=== PATIENT | male | born 2000 | race Caucasian/White ===

== ENCOUNTER 2019-07-05 21:03 | Emergency (ER) | payer OTHER, SELFPAY ==
[2019-07-05 21:06] VITALS: BP 128/72; PULSE 130; RESP 17; TEMP 36.9; O2SAT 96; BMI 29.9
[2019-07-05 21:11] VITALS: TEMP 38.6
[2019-07-05] MEDS: acetaminophen 500 mg Tablet 1000 MG PO (21:40)
[2019-07-05] MEDS: ibuprofen 600 mg Tablet PO (21:40)
--- NOTE | 2019-07-05 22:00 | W.ED.GENADLT ---
HPI - General Adult General: Chief complaint: General Medical Stated complaint: cold,light headed, mora Time Seen by Provider: 07/05/19 21:21 Source: patient Mode of arrival: ambulatory Limitations: no limitations History of Present Illness: HPI narrative: Patient is a 19-year-old male who presents to ED today with complaints of a headache, sinus pain/pressure, sore throat, productive cough, body aches, and fevers that began yesterday Onset (ago): hour(s) Relieving factors: none Exacerbating factors: none Associated symptoms: Reports headache(s); Deny chest pain, dyspnea, nausea, rash, palpitations or vomiting Review of Systems Const: Reports: fever, chills and body aches; Denies: fatigue or night sweats Eyes: Denies: change in vision, blurry vision, photophobia, eye discomfort or eye discharge ENMT: Reports: painful swallowing, nasal discharge and nasal congestion; Denies: throat pain, enlarged tonsils, swelling of lips/tongue, oral sores/lesions, ear pain, ear discharge, post nasal drip or facial/sinus pain Card: Denies: chest pain, palpitations or lightheadedness Resp: Reports: productive cough and chest congestion; Denies: shortness of breath, pain on inspiration or coughing up blood GI: Denies: abdominal pain, nausea, vomiting or diarrhea Musc: Denies: neck pain or back pain Skin/Breast: Denies: rash Neuro: Reports: headache All/Imm: Denies: facial swelling or seasonal allergies Physical Exam Const: COMMON NORMALS: no apparent distress, average body habitus, oriented x3, alert and well nourished GENERAL APPEARANCE: cooperative HENMT: COMMON NORMALS: normocephalic, head/scalp atraumatic, hearing grossly normal bilaterally, external ears normal, EAC's normal, TM's normal bilaterally, external nose normal, nasal mucous membranes and turbinates normal, moist oral mucous membranes and oropharynx normal HEAD & SCALP: normocephalic and atraumatic FACE & SINUS: facial tenderness (TTP maxillary sinuses ) NOSE: external nose normal and nasal mucous membranes and turbinates normal EXTERNAL EAR: Yes external ears normal EXTERNAL AUDITORY CANAL: EAC's normal TYMPANIC MEMBRANE: TM's normal bilaterally THROAT: posterior oropharynx normal, tonsils normal and uvula midline Eye: COMMON NORMALS: PERRL, EOMs intact bilaterally and conjunctivae normal CONJUNCTIVA: Yes conjunctivae normal PUPIL: Yes PERRL Neck/C-Spine: COMMON NORMALS: no lymphadenopathy Resp: COMMON NORMALS: normal respiratory effort and clear to auscultation bilaterally AUSCULTATION: clear to auscultation bilaterally Cardio: COMMON NORMALS: regular rhythm RATE: tachycardic RHYTHM: regular rhythm GI: COMMON NORMALS: normal to inspection, nondistended, normoactive bowel sounds, soft to palpation and non-tender PALPATION: Yes soft Extremity: COMMON NORMALS: normal to inspection Neuro: COMMON NORMALS: oriented x3 SENSORIUM/ORIENTATION: Yes alert Skin: COMMON NORMALS: no rashes or lesions noted GENERAL SKIN EXAM: no rashes or lesions noted Course Vital Signs: Vital signs: Vital Signs Temperature 102.9 F H 07/05/19 22:02 Pulse Rate 130 H 07/05/19 21:06 Respiratory Rate 17 07/05/19 21:06 Blood Pressure 128/72 07/05/19 21:06 Pulse Oximetry 96 07/05/19 21:06 MDM - General Adult MDM Narrative: Medical decision making narrative: Patient's influenza is negative but highly highly suspect this to be causing patient's symptoms; his labs consisting of a CBC, CMP, and lactate were completely normal; CXR is negative Lab Data: Labs: Lab Results 07/05/19 07/05/19 07/05/19 Range/Units 21:30 22:28 22:28 WBC 9.2 (4.5-13.0) 10^3/ uL RBC 5.33 H (4.1-5.3) 10^6/u L Hgb 16.8 H (11.7-16.6) g/dL Hct 46.8 (42.0-52.0) % MCV 87.8 (80-94) fL MCH 31.5 (28.0-34.0) pg MCHC 35.9 (30.0-36.0) g/dL RDW 11.9 L (12.1-15.1) % Plt Count 204 (130-400) 10^3/c mm MPV 8.7 (7.4-10.4) fL Neut % (Auto) 74.5 % Lymph % (Auto) 13.1 % Grainger % (Auto) 11.4 % Eos % (Auto) 0.3 % Baso % (Auto) 0.2 % Neut # (Auto) 6.9 (1.8-8.0) 10^3/u L Lymph # (Auto) 1.2 L (1.5-6.5) 10^3/u L Grainger # (Auto) 1.1 H (0.2-0.9) 10^3/u L Eos # (Auto) 0.0 (0.0-0.8) 10^3/u L Baso # (Auto) 0.0 (0.0-0.1) 10^3/u L Nucleated RBC % (a uto) 0 % Nucleated RBCs # 0.0 /100WBC Sodium 139 (136-145) mmol/L Potassium 4.1 (3.5-5.1) mmol/L Chloride 99 (98-107) mmol/L Carbon Dioxide 26 (22-29) mmol/L Anion Gap 18.1 (5-19) BUN 15 (6-20) mg/dL Creatinine 0.9 (0.7-1.2) mg/dL GFR Calculation 107.6 (90-130) mL/min Glucose 109 (74-109) mg/dL Lactate (0.5-2.2) mmol/L Calcium 10.0 (8.5-10.5) mg/dL Total Bilirubin 0.8 (0.15-1.2) mg/dL AST 29 (0-40) U/L ALT 79 H (0-41) U/L Alkaline Phosphata se 61 (40-130) IU/L Total Protein 8.1 (6.6-8.7) g/dL Albumin 5.1 (3.5-5.2) g/dL Globulin 3.0 (1.3-4.6) g/dL Influenza Type A A g Negative (Negative) POC Influenza B Ag Negative (Negative) 07/05/19 Range/Units 22:28 WBC (4.5-13.0) 10^3/ uL RBC (4.1-5.3) 10^6/u L Hgb (11.7-16.6) g/dL Hct (42.0-52.0) % MCV (80-94) fL MCH (28.0-34.0) pg MCHC (30.0-36.0) g/dL RDW (12.1-15.1) % Plt Count (130-400) 10^3/c mm MPV (7.4-10.4) fL Neut % (Auto) % Lymph % (Auto) % Grainger % (Auto) % Eos % (Auto) % Baso % (Auto) % Neut # (Auto) (1.8-8.0) 10^3/u L Lymph # (Auto) (1.5-6.5) 10^3/u L Grainger # (Auto) (0.2-0.9) 10^3/u L Eos # (Auto) (0.0-0.8) 10^3/u L Baso # (Auto) (0.0-0.1) 10^3/u L Nucleated RBC % (a uto) % Nucleated RBCs # /100WBC Sodium (136-145) mmol/L Potassium (3.5-5.1) mmol/L Chloride (98-107) mmol/L Carbon Dioxide (22-29) mmol/L Anion Gap (5-19) BUN (6-20) mg/dL Creatinine (0.7-1.2) mg/dL GFR Calculation (90-130) mL/min Glucose (74-109) mg/dL Lactate 1.1 (0.5-2.2) mmol/L Calcium (8.5-10.5) mg/dL Total Bilirubin (0.15-1.2) mg/dL AST (0-40) U/L ALT (0-41) U/L Alkaline Phosphata se (40-130) IU/L Total Protein (6.6-8.7) g/dL Albumin (3.5-5.2) g/dL Globulin (1.3-4.6) g/dL Influenza Type A A g (Negative) POC Influenza B Ag (Negative) Imaging Data^: CXR: Radiologist's impression: [address] [address] XRay Report Signed Patient: Montez Larson Unit #: [id number] : 2000 Age/Sex: 19 / M ADM Date: 07/05/19 Loc: ER Room/Bed: Attending Dr: Ordering Provider/Ordering MD: Coby Hodge Date of Service: 07/05/19 Procedure(s): XR chest 1V portable [id number] Accession Number(s): [id number] Report Number: [id number] PROCEDURE INFORMATION: Exam: XR Chest, 1 View Exam date and time: 07/05/2019 10:05 PM Age: 19 years old Clinical indication: Cough; Additional info: Cough/congestion TECHNIQUE: Imaging protocol: XR of the chest Views: 1 view. COMPARISON: CR Chest 1 [place] [id number] 02/05/2019 3:43 PM FINDINGS: Lungs: Unremarkable. No consolidation. Pleural space: Unremarkable. No pleural effusion. No pneumothorax. Heart/Mediastinum: There is mild cardiomegaly. Bones/joints: No acute abnormality. XR/XR chest 1V portable [id number] IMPRESSION: No acute findings. Unchanged exam. Dictated By: Mikayla Zuniga Signed By: Mikayla Zuniga Signed Date/Time: 07/05/192225 DD/ 24 Discharge Plan Discharge Patient Disposition: Home, Self-Care Clinical Impression: Viral illness Condition: Stable Prescriptions: New Tamiflu 75 mg capsule 75 mg PO BID 5 Days Qty: 10 RF: 0 Discharge Orders: Discharge Order (Routine); Ordered 07/05/19 Ordered By: Coby Hodge Discharge Diet: Usual diet Discharge Activity: Increase activity as tolerated Coding Level of Care Code ED Software Test Developer for Chg Fwd Exam Problem Focused
[2019-07-05 22:02] VITALS: TEMP 39.4
[2019-07-05 22:02] LABS: Influenza A by IFA Negative (Negative); Influenza B by IFA Negative (Negative)
--- NOTE | 2019-07-05 22:04 | XRR_ITS ---
PROCEDURE INFORMATION: Exam: XR Chest, 1 View Exam date and time: 07/05/2019 10:05 PM Age: 19 years old Clinical indication: Cough; Additional info: Cough/congestion TECHNIQUE: Imaging protocol: XR of the chest Views: 1 view. COMPARISON: CR Chest 1 [place] [id number] 02/05/2019 3:43 PM FINDINGS: Lungs: Unremarkable. No consolidation. Pleural space: Unremarkable. No pleural effusion. No pneumothorax. Heart/Mediastinum: There is mild cardiomegaly. Bones/joints: No acute abnormality. XR/XR chest 1V portable [id number] IMPRESSION: No acute findings. Unchanged exam.
[2019-07-05 22:32] LABS: Basophils % 0.2 %; Eosinophils % 0.3 %; Hematocrit 46.8 % (42.0-52.0); Hemoglobin 16.8 g/dL (11.7-16.6); Lymphocytes # 1.2 10^3/uL (1.5-6.5); Lymphocytes % 13.1 %; Mean Corpuscular HGB Conc 35.9 g/dL (30.0-36.0); Mean Corpuscular Hemoglobin 31.5 pg (28.0-34.0); Mean Corpuscular Volume 87.8 fL (80-94); Mean Platelet Volume 8.7 fL (7.4-10.4); Monocytes # 1.1 10^3/uL (0.2-0.9); Monocytes % 11.4 %; Neutrophils # 6.9 10^3/uL (1.8-8.0); Neutrophils % 74.5 %; Nucleated Red Blood Cells % 0 %; Platelet Count 204 10^3/cmm (130-400); Red Blood Count 5.33 10^6/uL (4.1-5.3); Red Cell Distribution Width 11.9 % (12.1-15.1); White Blood Count 9.2 10^3/uL (4.5-13.0)
[2019-07-05 22:46] LABS: Alanine Aminotransferase 79 U/L (0-41); Albumin Level 5.1 g/dL (3.5-5.2); Alkaline Phosphatase 61 IU/L (40-130); Anion Gap 18.1 (5-19); Aspartate Amino Transferase 29 U/L (0-40); Blood Urea Nitrogen 15 mg/dL (6-20); Carbon Dioxide 26 mmol/L (22-29); Chloride 99 mmol/L (98-107); Glomerular Filtration Rate 107.6 mL/min (90-130); Glucose 109 mg/dL (74-109); Potassium 4.1 mmol/L (3.5-5.1); Sodium 139 mmol/L (136-145); Total Bilirubin 0.8 mg/dL (0.15-1.2); Total Protein 8.1 g/dL (6.6-8.7)
[2019-07-05 22:47] LABS: Lactate (Lactic Acid level) 1.1 mmol/L (0.5-2.2)
[2019-07-05 23:09] VITALS: BP 139/67; PULSE 93; RESP 14; TEMP 36.8; O2SAT 98
== END 2019-07-05 23:18 | disposition home or self-care (01) ==
PROVIDERS: Emergency Provider Physician Assistant
DX: B34.9 Viral infection, unspecified (principal)
CPT/HCPCS: 71045; 80053; 83605; 85025; 87804; 99281

== ENCOUNTER 2020-06-30 01:39 | Emergency (ER) | payer OTHER, SELFPAY ==
--- NOTE | 2020-06-30 01:56 | ED_ITS ---
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 He states that he is concerned he may have Covid. He denies any shortness of breath. He has had no vomiting or diarrhea. He denies any abdominal pain. He denies any worsening improving factors. Associated symptoms: Reports chills; Deny abdominal pain, chest pain, diarrhea, dysuria, headache(s), nausea or v omiting Review of Systems Const: Reports: fever(s), chills and body aches Eyes: Denies: blurry vision or eye discomfort ENMT: Denies: throat pain or dental pain Card: Denies: chest pain Resp: Denies: dyspnea GI: Denies: abdominal pain, nausea, vomiting or diarrhea : Denies: dysuria Musc: Denies: neck pain or back pain Skin/Breast: Denies: rash Neuro: Denies: headache(s) Psych: Denies: depression Matt/Lymph: Denies: easy bruising All/Imm: Denies: urticaria Physical Exam Const: COMMON NORMALS: no acute distress, patient oriented x3 and healthy appearing HENMT: COMMON NORMALS: normocephalic and atraumatic HEAD & SCALP: normocephalic and atraumatic Eye: COMMON NORMALS: Equal, round and reactive pupils present and EOMs intact bilaterally PUPIL: Yes Equal, round and reactive pupils present Neck/C-Spine: COMMON NORMALS: full ROM and supple Chest: COMMONS NORMALS: normal inspection of the chest and normal palpation of entire chest wall Resp: COMMON NORMALS: normal respiratory effort, No retractions, No use of accessory muscles and clear to auscultation bilaterally AUSCULTATION: clear to auscultation bilaterally Cardio: COMMON NORMALS: regular rate, regular rhythm and No murmurs present (Cardio) RATE: regular rate RHYTHM: regular rhythm GI: COMMON NORMALS: Normal to inspection, nondistended, normoactive bowel sounds present, Soft to palpation, non-tender and no masses PALPATION: Yes Soft to palpation Extremity: COMMON NORMALS: normal to inspection and full ROM Neuro: COMMON NORMALS: patient oriented x3, moves all extremities and no focal motor deficits Psych: COMMON NORMALS: mental status grossly normal, Normal thought process present and cooperative THOUGHT PROCESS: Normal thought process present Skin: COMMON NORMALS: no rashes or lesions noted and no wounds GENERAL SKIN EXAM: no rashes or lesions noted Course Vital Signs: Vital signs: Vital Signs Temperature 99.1 F 06/30/20 01:58 Pulse Rate 98 06/30/20 02:02 Respiratory Rate 16 06/30/20 02:02 Blood Pressure 137/85 06/30/20 02:02 Pulse Oximetry 97 06/30/20 02:02 MDM - Fever MDM Narrative: Medical decision making narrative: Patient presents here with upper respiratory and Covid-like symptoms. She works in the hospital and wants to be checked for Covid. He is otherwise well-appearing here with normal vital signs. He has no signs of sepsis. Patient's exam is benign. Will do Covid test and he is stable for discharge. He is to return if worsening. He understands and agrees to plan. Discharge Plan Discharge Patient Disposition: Home Clinical Impression: Suspected 2019-nCoV infection Condition: Stable Discharge Orders: Discharge ED (Routine); Ordered 06/30/20 Ordered By: Inocente Canela Referrals: [facility], [Primary Care Provider] - Discharge Diet: Advance as tolerated Discharge Activity: Resume usual activity Patient Instructions: Upper Respiratory Infection (ED) Coding Level of Care Code ED Well Services Operator for Sarah Fwamparo Exam Comprehensive
[2020-06-30 01:58] VITALS: BP 137/85; PULSE 116; RESP 18; TEMP 37.3; O2SAT 96; BMI 31.6
[2020-06-30 02:02] VITALS: BP 137/85; PULSE 98; RESP 16; O2SAT 97
[2020-06-30] MEDS: acetaminophen 325 mg Tablet 650 MG PO (02:28)
[2020-06-30 02:36] VITALS: BP 124/71; PULSE 95; RESP 18; O2SAT 100
[2020-06-30 15:00] LABS: Coronavirus Test Green County DETECTED
--- NOTE | 2020-07-03 12:00 | PC.NURSE ---
Patient notified of COVID results at this time.
== END 2020-06-30 02:38 | disposition home or self-care (01) ==
PROVIDERS: Emergency Provider Emergency Medicine
DX: U07.1 COVID-19 (principal)
CPT/HCPCS: 12345; 87635; 99281; 99283

== ENCOUNTER 2020-09-10 23:10 | Emergency (ER) | payer SELFPAY ==
[2020-09-10 23:15] VITALS: BP 155/89; PULSE 82; RESP 16; TEMP 36.7; O2SAT 97; BMI 29.9
--- NOTE | 2020-09-10 23:17 | XR_ITS ---
WS: [id number] Thoracic spine, 3 views, 09/10/2020 Clinical Data: injury Comparison: None. Findings: No compression fractures are seen. The disc heights are normal. The paravertebral regions are normal. XR/XR thoracic spine 3V* [id number] Impression: Negative thoracic spine.
--- NOTE | 2020-09-10 23:17 | XR_ITS ---
WS: [id number] Lumbar spine, 3 views, 09/10/2020 Clinical Data: injury Comparison: None. Findings: No compression fractures or subluxation is seen. No disc space narrowing is seen. The transverse proc esses and SI joints are normal. XR/XR lumbar spine 2-3V* [id number] Impression: Negative lumbar spine.
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
[2020-09-10] MEDS: naproxen 500 mg Tablet PO (23:39)
[2020-09-10 23:46] VITALS: PULSE 82; RESP 16; O2SAT 99
== END 2020-09-10 23:47 | disposition home or self-care (01) ==
LOC: ER 23:21
PROVIDERS: Emergency Provider Emergency Medicine
DX: S13.4XXA Sprain of ligaments of cervical spine, initial encounter (principal); V89.2XXA Person injured in unspecified motor-vehicle accident, traffic, initial encounter
CPT/HCPCS: 70450; 72072; 72100; 99283

== ENCOUNTER 2020-12-22 22:43 | Emergency (ER) | payer OTHER, SELFPAY ==
[2020-12-22 22:57] VITALS: PULSE 84; RESP 18; TEMP 36.4; O2SAT 99; BMI 34.1
--- NOTE | 2020-12-22 23:33 | W.ED.EYEPROB ---
HPI - Eye Problem General: Chief complaint: Eye Problems Stated complaint: Allergic Reaction\Arm and Eye Time Seen by Provider: 12/22/20 23:33 History of Present Illness: HPI Narrative: Patient comes in today for complaints of rash to the forearms and the face. Patient reports that he was working outside and today and thinks he might have been exposed to poison aimee. Patient reports that he came to work tonight and started having itching to the arms and to his face. Review of Systems General: Reports: 10 or more systems reviewed and unremarkable except in HPI and below Skin/Breast: Reports: rash Physical Exam Const: COMMON NORMALS: no acute distress and patient oriented x3 GENERAL APPEARANCE: cooperative HENMT: COMMON NORMALS: normocephalic, TM's normal bilaterally and Normal external nose present HEAD & SCALP: normal to inspection and normocephalic NOSE: Normal external nose present TYMPANIC MEMBRANE: TM's normal bilaterally MOUTH: Normal oral and palatal mucosa present THROAT: posterior oropharynx normal Eye: GENERAL EYE: appearance normal, both eyes and all related structures Neck/C-Spine: COMMON NORMALS: full ROM Lymph: LYMPHATIC: no lymphadenopathy noted Chest: COMMONS NORMALS: normal inspection of the chest Resp: COMMON NORMALS: normal respiratory effort EFFORT & INSPECTION: Yes able to speak in complete sentences Cardio: COMMON NORMALS: regular rate and regular rhythm RATE: regular rate RHYTHM: regular rhythm GI: COMMON NORMALS: non-tender : COMMON NORMALS: Yes no CVA tenderness BLADDER/KIDNEY EXAM: Yes no CVA tenderness Back/Pelvis: COMMON NORMALS: no CVA tenderness and thoracic and lumbar spine normal to inspection Extremity: COMMON NORMALS: normal to inspection Neuro: COMMON NORMALS: patient oriented x3 and moves all extremities Psych: COMMON NORMALS: mental status grossly normal and cooperative Skin: NARRATIVE SKIN EXAM: Patient has poison aimee dermatitis to the forearms and the face. Incidentally patient also has some tinea versicolor to his chest and back. Course Vital Signs: Vital signs: Vital Signs Temperature 97.6 F 12/22/20 22:57 Pulse Rate 81 12/23/20 00:15 Respiratory Rate 16 12/23/20 00:15 Blood Pressure 149/94 12/23/20 00:15 Pulse Oximetry 96 12/23/20 00:15 MDM - Eye Problem MDM Narrative: Medical decision making narrative: Patient comes in for itchy rash to his face and forearms. On exam patient has some a elevated erythematous rash to his face and forearms. Patient also has a tinea versicolor rash to his torso. Differential diagnosis includes contact dermatitis, poison aimee, allergic reaction. Patient was given 40 mg of triamcinolone and 50 mg of diphenhydramine. Patient was prescribed prednisone to complete over the next 7 days. Encourage plenty of fluids and follow-up with primary care as needed. Return to work as needed. Discharge Plan Discharge Patient Disposition: Home Clinical Impression: Poison aimee, Tinea versicolor Condition: Stable Prescriptions: New prednisone 20 mg tablet 20 mg PO BID 7 Days Qty: 14 RF: 0 No Action Robaxin-750 750 mg tablet 750 mg PO Q6H Qty: 30 RF: 0 Naprosyn 500 mg tablet 500 mg PO BID PRN (Reason: pain) Qty: 20 RF: 0 Discharge Orders: Discharge ED (Routine); Ordered 12/22/20 Ordered By: Giancarlo Farris Discharge Diet: Usual diet Discharge Activity: Increase activity as tolerated Patient Instructions: Poison Aimee (ED), Opioid Safety Activity Restrictions/Additional Instructions: Use calamine lotion and Benadryl for comfort and itching. Avoid getting overheated. The rash will take about 14 days to completely clear. The steroid will help with eyes swelling shut and worsening symptoms. Drink plenty of water with medication. Take Benadryl as package recommends. Use of calamine lotion 2 or 3 times a day to the rash for comfort. Follow-up with primary care for further instruction. Coding Level of Care Code ED Recycling Technician for Sarah Koch Exam Comprehensive
[2020-12-23 00:09] VITALS: BP 132/91; PULSE 88; RESP 15; O2SAT 96
[2020-12-23] MEDS: diphenhydrAMINE 50 mg Capsule PO (00:13)
[2020-12-23] MEDS: triamcinolone 40 mg/mL SDV IM (00:13)
[2020-12-23 00:15] VITALS: BP 149/94; PULSE 81; RESP 16; O2SAT 96
== END 2020-12-23 00:19 | disposition home or self-care (01) ==
PROVIDERS: Emergency Provider Nurse Practitioner Family
DX: L23.7 Allergic contact dermatitis due to plants, except food (principal); B36.0 Pityriasis versicolor
CPT/HCPCS: 96372; 99283; J3301; Q0163